=== PATIENT | female | born 1965 | race Caucasian/White ===

== ENCOUNTER 2024-12-21 08:22 | Outpatient (REF) | payer OTHER, SELFPAY ==
--- OUTSIDE RECORDS SUMMARY | 2024-12-21 08:46 | XMS_ITS | Data Portability ---
Author Organization [facility], Main Office Address [address] [place] [address] Care Team Providers Care Medical Records Field Technician Name Role Phone ANGELINE CUETO Primary Care Provider ANNEMARIE ENGLE Faculty Criminal Justice LETI AGUILAR Psychiatrist JUVENTINO CORNEJO Referring Provider Assessment No assessment recorded. Plan of Treatment Reminders Order Date Submit Date Provider Last Modified By Organization Details Last Modified Time Details Appointments None recor ded. Lab cinthya tin, serum or plasm a 2024 025 CUR[facility] (Centralized Electronic Ordering - All Locations), Patient Can Go To The Location Of Their Choice, 08:08:28 lipid panel , serum 2024 025 [facility] (Centralized Electronic Ordering - All Locations), Patient Can Go To The Location Of Their Choice, 08:08:27 CMP, serum or plasm a 2024 025 [facility] (Centralized Electronic Ordering - All Locations), Patient Can Go To The Location Of Their Choice, 08:08:25 CBC 2024 025 [facility] (Centralized Electronic Ordering - All Locations), Patient Can Go To The Location Of Their Choice, 08:08:26 lipid panel , serum 2022 023 CURT [facility], [address], [address], [place], [address], 3 01:33:19 CMP, serum or plasm a 2022 023 [facility], [address], [address], [place], [address], 3 01:41:07 nonin vasiv e color ectal cance r DNA + occul t blood scree papi, QL, stool 2022 023 [facility] [address], [address], [place], [address], 3 14:54:55 CBC w/ auto diff 2022 023 [facility], [address], [address], [place], [address], 3 01:32:38 lipid panel , serum 2021 022 [facility], [address], [address], [place], [address], 2 11:33:56 CMP, serum or plasm a 2021 022 [facility], [address], [address], [place], [address], 2 11:33:55 nonin vasiv e color ectal cance r DNA + occul t blood scree papi, QL, stool 2021 022 [facility] [address], [address], [place], [address], 3 14:18:49 CBC w/ auto diff 2021 022 [facility], [address], [address], [place], [address], 2 11:42:57 hepat itis C virus Ab, serum 2021 022 [facility], [address], [address], [place], [address], 2 11:16:19 nonin vasiv e color ectal cance r DNA + occul t blood scree papi, stool 2020 021 [email or web address] [facility] (Cologuard Orders Only), [address], [address], [place], [address], 1 11:32:01 CMP, serum or plasm a 2020 021 [facility], [address], [address], [place], [address], 1 17:29:54 lipid panel , serum 2020 021 [facility]T [facility], [address], [address], [place], [address], 1 17:29:55 CBC w/ auto diff 2020 021 [facility], [address], [address], [place], [address], 1 17:53:43 vitam in D, 25-hy droxy , total , serum 2020 021 [facility]T [facility], [address], [address], [place], [address], 1 17:44:34 lipid panel , serum 2019 020 [facility]T [facility], [address], [address], [place], [address], 0 10:57:57 CMP, serum or plasm a 2019 020 [facility], [address], [address], [place], [address], 0 10:57:55 Referral audio logis t refer ral - Decre ased heari ng 2024 025 [email or web address] [facility], [address] [place] [address] [place], [address], 5 10:01:04 sleep medic ine refer ral - Unref reshe d sleep and dayti me fatig ue. 2022 023 [facility], [address] [place], [address], 3 15:23:[address] refer ral - Routi ne mechanical fitter care 2019 020 juan Jiménez MD, [address] [facility], [address], [place], [address], 0 09:19:53 gastr oente rolog ist refer ral - Needs colon cance r nicolle turpin 2019 020 [facility] [place] Treasure Burns MD, [address] [facility] [address], [place], [address], 0 14:40:04 Procedures colon oscop y nicolle turpin (PROC ) 2019 [facility]20 [facility], [address] [facility], [place], [address], 0 14:25:52 Surgeries None recor ded. Imaging audio gram 2022 023 [email or web address] In-Office Order, Internal Use Only DO Not Attach Compendium DO Not Attach Compendium, Do Not Delete/merge, [id number] 3 17:41:14 MAMMO nicolle bilat eral - Perfo rm Diagn ostic Mammo gram and Breas t Ultra sound if neede d / Perfo rm Ultra sound Guide d Aspir ation and/o r Breas t Biops y if warra nted 2020 021 [email or web address] In-Office Order, Internal Use Only DO Not Attach Compendium DO Not Attach Compendium, Do Not Delete/merge, [id number] 1 11:05:17 MAMMO , scree papi, bilat eral - Perfo rm Diagn ostic Mammo gram and Breas t Ultra sound if neede d / Perfo rm Ultra sound Guide d Aspir ation and/o r Breas t Biops y if warra nted 2019 020 [email or web address] In-Office Order, Internal Use Only DO Not Attach Compendium DO Not Attach Compendium, Do Not Delete/merge, [id number] 0 14:40:04 Medication Orders None recor ded. Patient TargetsNo targets recorded. Patient Instructions Encounter Date Encounter Id Patient Instructions Last Modified By Organization Details Last Modified Time 09/28/2019 [id number] learning about colon cancer [email or web address] Not available 09/28/2019 14:22:48 01/09/2021 [id number] learning about colon cancer acennerazzo Not available 01/09/2021 10:40:21 colon cancer screening: care instructions [email or web address] Not available 01/09/2021 10:40:21 02/11/2022 [id number] colon cancer screening: care instructions [email or web address] Not available 02/11/2022 10:40:15 learning about mood disorders acennerazzo Not available 02/11/2022 12:44:40 05/27/2023 [id number] hearing loss: care instructions acennerazzo Not available 05/27/2023 10:32:52 colon cancer screening: care instructions acennerazzo Not available 05/27/2023 17:45:20 learning about mood disorders [email or web address] Not available 05/27/2023 17:43:26 10/03/2024 [id number] hearing loss: care instructions acennerazzo Not available 10/03/2024 09:54:49 high cholesterol: care instructions acennerazzo Not available 10/03/2024 09:54:23 learning about mood disorders [email or web address] Not available 10/03/2024 09:54:23 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 [facility] [facility] [address], [place], [address], 02/11/2023 14:18:48 01/10/20 22 01/09/2022 COLOG UARD cologuard result Cancel led - Order d not applic able Not Available [facility] (Cologuard Orders Only) [address], [place], [address], 01/09/2022 07:29:36 10/26/19 20 10/26/2019 CMP, serum or plasm a glucose 86 mg/dL (70-99 ) Not Available [facility] (Centralized Electronic Ordering - All Locations) Patient Can Go To The Location Of Their Choice, [id number] 10/26/2019 10:57:55 10/26/19 20 10/26/2019 CMP, serum or plasm a BUN 11 mg/dL (6-20) Not Available [facility] (Centralized Electronic Ordering - All Locations) Patient Can Go To The Location Of Their Choice, 10/26/2019 10:57:55 10/26/1910/26/2019 CMP, serum or plasm a creatinine 1.0 mg/dL (0.5-1 .0) Not Available [facility] (Centralized Electronic Ordering - All Locations) Patient Can Go To The Location Of Their Choice, 10/26/2019 10:57:55 10/26/1910/26/2019 CMP, serum or plasm a sodium 141 mmol/ L (133-1 45) Not Available [facility] (Centralized Electronic Ordering - All Locations) Patient Can Go To The Location Of Their Choice, 10/26/2019 10:57:55 10/26/1910/26/2019 CMP, serum or plasm a potassium 4.4 mmol/ L (3.6-5 .2) Not Available [facility] (Centralized Electronic Ordering - All Locations) Patient Can Go To The Location Of Their Choice, 10/26/2019 10:57:55 10/26/1910/26/2019 CMP, serum or plasm a chloride 103 mmol/ L (98-10 7) Not Available [facility] (Centralized Electronic Ordering - All Locations) Patient Can Go To The Location Of Their Choice, 10/26/2019 10:57:55 10/26/1910/26/2019 CMP, serum or plasm a bicarbonate 30 mmol/ L (22-29 ) high Not Available [facility] (Centralized Electronic Ordering - All Locations) Patient Can Go To The Location Of Their Choice, 10/26/2019 10:57:55 10/26/1910/26/2019 CMP, serum or plasm a anion gap 8 (4-17) Not Available [facility] (Centralized Electronic Ordering - All Locations) Patient Can Go To The Location Of Their Choice, 10/26/2019 10:57:55 10/26/1910/26/2019 CMP, serum or plasm a albumin 4.3 gm/dL (3.4-4 .8) Not Available [facility] (Centralized Electronic Ordering - All Locations) Patient Can Go To The Location Of Their Choice, 10/26/2019 10:57:55 10/26/1910/26/2019 CMP, serum or plasm a calcium 9.2 mg/dL (8.6-1 0.5) Not Available [facility] (Centralized Electronic Ordering - All Locations) Patient Can Go To The Location Of Their Choice, 10/26/2019 10:57:55 10/26/1910/26/2019 CMP, serum or plasm a bilirubin,to robles 0.3 mg/dL (0-1.2 ) Not Available [facility] (Centralized Electronic Ordering - All Locations) Patient Can Go To The Location Of Their Choice, 10/26/2019 10:57:55 10/26/1910/26/2019 CMP, serum or plasm a total protein 6.5 gm/dL (6.2-8 .2) Not Available [facility] (Centralized Electronic Ordering - All Locations) Patient Can Go To The Location Of Their Choice, 10/26/2019 10:57:55 10/26/1910/26/2019 CMP, serum or plasm a Ag ratio 2.0 Not Available [facility] (Centralized Electronic Ordering - All Locations) Patient Can Go To The Location Of Their Choice, 10/26/2019 10:57:55 10/26/1910/26/2019 CMP, serum or plasm a AST 24 U/L (0-32) Not Available [facility] (Centralized Electronic Ordering - All Locations) Patient Can Go To The Location Of Their Choice, 10/26/2019 10:57:55 10/26/1910/26/2019 CMP, serum or plasm a alk phos 69 U/L (35-10 4) Not Available [facility] (Centralized Electronic Ordering - All Locations) Patient Can Go To The Location Of Their Choice, 10/26/2019 10:57:55 10/26/1910/26/2019 CMP, serum or plasm a ALT 17 U/L (0-33) Not Available [facility] (Centralized Electronic Ordering - All Locations) Patient Can Go To The Location Of Their Choice, 10/26/2019 10:57:55 10/26/1910/26/2019 CMP, serum or plasm a est GFR non 65 mL/mi n/1.7 3_M2 Creat inine based estim ated glome rular filtr ation rate (eGFR ) is calcu lated using the Chron ic Kidne y Disea se Epide miolo gy Colla borat ion (CKD- EPI). The CKD-E PI creat inine equat ion has not been valid ated in child emilee (<18 years ), pregn ant women or in some racia l or ethni c subgr oups other than Cauca sians and Afric an Ameri cans. Not Available [facility] (Centralized Electronic Ordering - All Locations) Patient Can Go To The Location Of Their Choice, 10/26/2019 10:57:55 10/26/1910/26/2019 CMP, serum or plasm a est GFR 75 mL/mi n/1.7 3_M2 Creat inine based estim ated glome rular filtr ation rate (eGFR ) is calcu lated using the Chron ic Kidne y Disea se Epide miolo gy Colla borat ion (CKD- EPI). The CKD-E PI creat inine equat ion has not been valid ated in child emilee (<18 years ), pregn ant women or in some racia l or ethni c subgr oups other than Cauca sians and Afric an Ameri cans. Not Available [facility] (Centralized Electronic Ordering - All Locations) Patient Can Go To The Location Of Their Choice, 10/26/2019 10:57:55 10/26/1910/26/2019 lipid panel , serum cholesterol, total 198 mg/dL (<200) Not Available [facility] (Centralized Electronic Ordering - All Locations) Patient Can Go To The Location Of Their Choice, 10/26/2019 10:57:57 10/26/1910/26/2019 lipid panel , serum triglyceride 67 mg/dL (<150) Not Available [facility] ([facility] Order[facility] - All Locations) Patient Can Go To The Location Of Their Choice, 10/26/2019 10:57:57 10/26/1910/26/2019 lipid panel , serum HDL chol 80 mg/dL (>39) Not Available [facility] (Centralized Electronic Ordering - All Locations) Patient Can Go To The Location Of Their Choice, 10/26/2019 10:57:57 10/26/1910/26/2019 lipid panel , serum LDL cholesterol, calculated 105 mg/dL (0-130 ) Not Available [facility] (Centralized Electronic Ordering - All Locations) Patient Can Go To The Location Of Their Choice, 10/26/2019 10:57:57 10/26/1910/26/2019 lipid panel , serum non HDL cholesterol (calc) 118 mg/dL (<160) Not Available [facility] (Centralized Electronic Ordering - All Locations) Patient Can Go To The Location Of Their Choice, 10/26/2019 10:57:57 01/09/2001/09/2020 pap test, thinp rep, cervi vielka thinprep Pap negati ve hpv negat marco antonio Not Available Annemarie Engle MD [address], [address], 03/17/2021 10:21:34 01/10/2001/09/2021 CMP, serum or plasm a glucose 79 mg/dL (70-99 ) Not Available [facility] (Centralized Electronic Ordering - All Locations) Patient Can Go To The Location Of Their Choice, 01/09/2021 17:29:54 01/10/2001/09/2021 CMP, serum or plasm a BUN 11 mg/dL (6-20) Not Available [facility] (Centralized Electronic Ordering - All Locations) Patient Can Go To The Location Of Their Choice, 01/09/2021 17:29:54 01/10/2001/09/2021 CMP, serum or plasm a creatinine 1.0 mg/dL (0.5-1 .0) Not Available [facility] (Centralized Electronic Ordering - All Locations) Patient Can Go To The Location Of Their Choice, 01/09/2021 17:29:54 01/10/2001/09/2021 CMP, serum or plasm a sodium 139 mmol/ L (133-1 45) Not Available [facility] (Centralized Electronic Ordering - All Locations) Patient Can Go To The Location Of Their Choice, 01/09/2021 17:29:54 01/10/2001/09/2021 CMP, serum or plasm a potassium 4.2 mmol/ L (3.6-5 .2) Not Available [facility] (Centralized Electronic Ordering - All Locations) Patient Can Go To The Location Of Their Choice, 01/09/2021 17:29:54 01/10/2001/09/2021 CMP, serum or plasm a chloride 104 mmol/ L (98-10 7) Not Available [facility] (Centralized Electronic Ordering - All Locations) Patient Can Go To The Location Of Their Choice, 01/09/2021 17:29:54 01/10/2001/09/2021 CMP, serum or plasm a bicarbonate 25 mmol/ L (22-29 ) Not Available [facility] (Centralized Electronic Ordering - All Locations) Patient Can Go To The Location Of Their Choice, 01/09/2021 17:29:54 01/10/2001/09/2021 CMP, serum or plasm a anion gap 10 (4-17) Not Available [facility] (Centralized Electronic Ordering - All Locations) Patient Can Go To The Location Of Their Choice, 01/09/2021 17:29:54 01/10/2001/09/2021 CMP, serum or plasm a albumin 4.0 gm/dL (3.4-4 .8) Not Available [facility] (Centralized Electronic Ordering - All Locations) Patient Can Go To The Location Of Their Choice, 01/09/2021 17:29:54 01/10/2001/09/2021 CMP, serum or plasm a calcium 8.9 mg/dL (8.6-1 0.5) Not Available [facility] (Centralized Electronic Ordering - All Locations) Patient Can Go To The Location Of Their Choice, 01/09/2021 17:29:54 01/10/2001/09/2021 CMP, serum or plasm a bilirubin,to robles 0.4 mg/dL (0-1.2 ) Not Available [facility] (Centralized Electronic Ordering - All Locations) Patient Can Go To The Location Of Their Choice, 01/09/2021 17:29:54 01/10/2001/09/2021 CMP, serum or plasm a total protein 6.2 gm/dL (6.2-8 .2) Not Available [facility] (Centralized Electronic Ordering - All Locations) Patient Can Go To The Location Of Their Choice, 01/09/2021 17:29:54 01/10/2001/09/2021 CMP, serum or plasm a Ag ratio 1.8 Not Available [facility] (Centralized Electronic Ordering - All Locations) Patient Can Go To The Location Of Their Choice, 01/09/2021 17:29:54 01/10/2001/09/2021 CMP, serum or plasm a AST 17 U/L (0-32) Not Available [facility] (Centralized Electronic Ordering - All Locations) Patient Can Go To The Location Of Their Choice, 01/09/2021 17:29:54 01/10/2001/09/2021 CMP, serum or plasm a alk phos 72 U/L (35-10 4) Not Available [facility] (Centralized Electronic Ordering - All Locations) Patient Can Go To The Location Of Their Choice, 01/09/2021 17:29:54 01/10/2001/09/2021 CMP, serum or plasm a ALT 11 U/L (0-33) Not Available [facility] (Centralized Electronic Ordering - All Locations) Patient Can Go To The Location Of Their Choice, 01/09/2021 17:29:54 01/10/2001/09/2021 CMP, serum or plasm a est GFR non 68 mL/mi n/1.7 3_M2 Creat inine based estim ated glome rular filtr ation rate (eGFR ) is calcu lated using the Chron ic Kidne y Disea se Epide miolo gy Colla borat ion (CKD- EPI). The CKD-E PI creat inine equat ion has not been valid ated in child emilee (<18 years ), pregn ant women or in some racia l or ethni c subgr oups other than Cauca sians and Afric an Ameri cans. Not Available [facility] (Centralized Electronic Ordering - All Locations) Patient Can Go To The Location Of Their Choice, 01/09/2021 17:29:54 01/10/2001/09/2021 CMP, serum or plasm a est GFR 79 mL/mi n/1.7 3_M2 Creat inine based estim ated glome rular filtr ation rate (eGFR ) is calcu lated using the Chron ic Kidne y Disea se Epide miolo gy Colla borat ion (CKD- EPI). The CKD-E PI creat inine equat ion has not been valid ated in child emilee (<18 years ), pregn ant women or in some racia l or ethni c subgr oups other than Chona karla and Afric an Mary Betheri cans. Not Available [facility] (Centralized Electronic Ordering - All Locations) Patient Can Go To The Location Of Their Choice, 01/09/2021 17:29:54 01/10/2001/09/2021 lipid panel , serum cholesterol, total 198 mg/dL (<200) Not Available [facility] (Centralized [facility] Ordering - All Locations) Patient Can Go To The Location Of Their Choice, 01/09/2021 17:29:55 01/10/2001/09/2021 lipid panel , serum triglyceride 45 mg/dL (<150) Not Available [facility] (Central[facility] Ordering - All Locations) Patient Can Go To The Location Of Their Choice, 01/09/2021 17:29:55 01/10/2001/09/2021 lipid panel , serum HDL chol 72 mg/dL (>39) Not Available [facility] (Centralized Electronic Ordering - All Locations) Patient Can Go To The Location Of Their Choice, 01/09/2021 17:29:55 01/10/2001/09/2021 lipid panel , serum LDL cholesterol, calculated 117 mg/dL (0-130 ) Not Available [facility] (Centralized Electronic Ordering - All Locations) Patient Can Go To The Location Of Their Choice, 01/09/2021 17:29:55 01/10/2001/09/2021 lipid panel , serum non HDL cholesterol (calc) 126 mg/dL (<160) Not Available [facility] (Centralized Electronic Ordering - All Locations) Patient Can Go To The Location Of Their Choice, 01/09/2021 17:29:55 01/10/2001/09/2021 vitam in D, 25-hy droxy , total , serum 25OH vitamin D 42.2 NG/mL (20-50 ) Not Available [facility] (Centralized Electronic Ordering - All Locations) Patient Can Go To The Location Of Their Choice, 01/09/2021 17:44:34 01/10/2001/09/2021 CBC w/ auto diff WBC 5.1 K/mm3 (4.0-1 1.0) Not Available [facility] (Centralized Electronic Ordering - All Locations) Patient Can Go To The Location Of Their Choice, 01/09/2021 17:53:43 01/10/2001/09/2021 CBC w/ auto diff RBC 4.05 M/mm3 (4.20- 5.40) low Not Available [facility] (Centralized Electronic Ordering - All Locations) Patient Can Go To The Location Of Their Choice, 01/09/2021 17:53:43 01/10/2001/09/2021 CBC w/ auto diff HGB 12.6 gm/dL (11.7- 15.5) Not Available [facility] (Centralized Electronic Ordering - All Locations) Patient Can Go To The Location Of Their Choice, 01/09/2021 17:53:43 01/10/2001/09/2021 CBC w/ auto diff HCT 38.5 % (35.7- 45.8) Not Available [facility] (Centralized Electronic Ordering - All Locations) Patient Can Go To The Location Of Their Choice, 01/09/2021 17:53:43 01/10/2001/09/2021 CBC w/ auto diff MCV 95.1 fL (80.0- 100.0) Not Available [facility] (Centralized Electronic Ordering - All Locations) Patient Can Go To The Location Of Their Choice, 01/09/2021 17:53:43 01/10/2001/09/2021 CBC w/ auto diff MCH 31.1 pg (27.0- 34.0) Not Available [facility] (Centralized Electronic Ordering - All Locations) Patient Can Go To The Location Of Their Choice, 01/09/2021 17:53:43 01/10/2001/09/2021 CBC w/ auto diff MCHC 32.7 g/dL (33.0- 37.0) low Not Available [facility] (Centralized Electronic Ordering - All Locations) Patient Can Go To The Location Of Their Choice, 01/09/2021 17:53:43 01/10/2001/09/2021 CBC w/ auto diff plt 184 K/mm3 (150-4 60) Not Available [facility] (Centralized Electronic Ordering - All Locations) Patient Can Go To The Location Of Their Choice, 01/09/2021 17:53:43 01/10/2001/09/2021 CBC w/ auto diff RDW-SD 44.0 fL (<47.0 ) Not Available [facility] (Centralized Electronic Ordering - All Locations) Patient Can Go To The Location Of Their Choice, 01/09/2021 17:53:43 01/10/2001/09/2021 CBC w/ auto diff MPV 11.0 fL (9.4-1 2.4) Not Available [facility] (Centralized Electronic Ordering - All Locations) Patient Can Go To The Location Of Their Choice, 01/09/2021 17:53:43 01/10/2001/09/2021 CBC w/ auto diff automated NRBC 0.0 #/100 _WBC' s Not Available [facility] (Centralized Electronic Ordering - All Locations) Patient Can Go To The Location Of Their Choice, 01/09/2021 17:53:43 01/10/2001/09/2021 CBC w/ auto diff abs. NRBC 0.0 K/mm3 Not Available [facility] (Centralized Electronic Ordering - All Locations) Patient Can Go To The Location Of Their Choice, 01/09/2021 17:53:43 02/26/2002/25/2022 COMPR EHENS MARCO ANTONIO METAB OLIC PANL glucose 98 mg/dL (70-99 ) Not Available [facility] (Centralized Electronic Ordering - All Locations) Patient Can Go To The Location Of Their Choice, 02/25/2022 11:33:55 02/26/2002/25/2022 COMPR EHENS MARCO ANTONIO METAB OLIC PANL BUN 9 mg/dL (6-20) Not Available [facility] (Centralized Electronic Ordering - All Locations) Patient Can Go To The Location Of Their Choice, 02/25/2022 11:33:55 02/26/2002/25/2022 COMPR EHENS MARCO ANTONIO METAB OLIC PANL creatinine 1.0 mg/dL (0.5-1 .0) Not Available [facility] (Centralized Electronic Ordering - All Locations) Patient Can Go To The Location Of Their Choice, 02/25/2022 11:33:55 02/26/2002/25/2022 COMPR EHENS MARCO ANTONIO METAB OLIC PANL sodium 137 mmol/ L (133-1 45) Not Available [facility] (Centralized Electronic Ordering - All Locations) Patient Can Go To The Location Of Their Choice, 02/25/2022 11:33:55 02/26/2002/25/2022 COMPR EHENS MARCO ANTONIO METAB OLIC PANL potassium 4.4 mmol/ L (3.6-5 .2) Not Available [facility] (Centralized Electronic Ordering - All Locations) Patient Can Go To The Location Of Their Choice, 02/25/2022 11:33:55 02/26/2002/25/2022 COMPR EHENS MARCO ANTONIO METAB OLIC PANL chloride 103 mmol/ L (98-10 7) Not Available [facility] (Centralized Electronic Ordering - All Locations) Patient Can Go To The Location Of Their Choice, 02/25/2022 11:33:55 02/26/2002/25/2022 COMPR EHENS MARCO ANTONIO METAB OLIC PANL bicarbonate 24 mmol/ L (22-29 ) Not Available [facility] (Centralized Electronic Ordering - All Locations) Patient Can Go To The Location Of Their Choice, 02/25/2022 11:33:55 02/26/2002/25/2022 COMPR EHENS MARCO ANTONIO METAB OLIC PANL anion gap 10 (4-17) Not Available [facility] (Centralized Electronic Ordering - All Locations) Patient Can Go To The Location Of Their Choice, 02/25/2022 11:33:55 02/26/2002/25/2022 COMPR EHENS MARCO ANTONIO METAB OLIC PANL albumin 4.2 gm/dL (3.4-4 .8) Not Available [facility] (Centralized Electronic Ordering - All Locations) Patient Can Go To The Location Of Their Choice, 02/25/2022 11:33:55 02/26/2002/25/2022 COMPR EHENS MARCO ANTONIO METAB OLIC PANL calcium 8.7 mg/dL (8.6-1 0.5) Not Available [facility] (Centralized Electronic Ordering - All Locations) Patient Can Go To The Location Of Their Choice, 02/25/2022 11:33:55 02/26/2002/25/2022 COMPR EHENS MARCO ANTONIO METAB OLIC PANL bilirubin,to robles 0.2 mg/dL (0-1.2 ) Not Available [facility] (Centralized Electronic Ordering - All Locations) Patient Can Go To The Location Of Their Choice, 02/25/2022 11:33:55 02/26/20 22 02/25/2022 COMPR EHENS MARCO ANTONIO METAB OLIC PANL total protein 6.2 gm/dL (6.2-8 .2) Not Available [facility] (Centralized Electronic Ordering - All Locations) Patient Can Go To The Location Of Their Choice, 02/25/2022 11:33:55 02/26/2002/25/2022 COMPR EHENS MARCO ANTONIO METAB OLIC PANL Ag ratio 2.1 Not Available [facility] (Centralized Electronic Ordering - All Locations) Patient Can Go To The Location Of Their Choice, 02/25/2022 11:33:55 02/26/2002/25/2022 COMPR EHENS MARCO ANTONIO METAB OLIC PANL AST 20 U/L (0-32) Not Available [facility] (Centralized Electronic Ordering - All Locations) Patient Can Go To The Location Of Their Choice, 02/25/2022 11:33:55 02/26/2002/25/2022 COMPR EHENS MARCO ANTONIO METAB OLIC PANL alk phos 68 U/L (35-10 4) Not Available [facility] (Centralized Electronic Ordering - All Locations) Patient Can Go To The Location Of Their Choice, 02/25/2022 11:33:55 02/26/2002/25/2022 COMPR EHENS MARCO ANTONIO METAB OLIC PANL ALT 13 U/L (0-33) Not Available [facility] (Centralized Electronic Ordering - All Locations) Patient Can Go To The Location Of Their Choice, 02/25/2022 11:33:55 02/26/2002/25/2022 COMPR EHENS MARCO ANTONIO METAB OLIC PANL estimated GFR creatinine 67 mL/mi n/1.7 3_M2 Creat inine based estim ated glome rular filtr ation (eGFR ) in adult s is calcu lated using the Natio nal Kidne y Found ation recom tr d 2020 CKD-E PI equat ion. Estim ates GFR from serum creat inine , age and sex. Not Available [facility] (Centralized Electronic Ordering - All Locations) Patient Can Go To The Location Of Their Choice, 02/25/2022 11:33:55 02/26/2002/25/2022 LIPID PANEL cholesterol, total 193 mg/dL (<200) Not Available [facility] ([facility] Order[facility] - All Locations) Patient Can Go To The Location Of Their Choice, 02/25/2022 11:33:56 02/26/2002/25/2022 LIPID PANEL triglyceride 84 mg/dL (<150) Not Available [facility] ([facility] Ordering - All Locations) Patient Can Go To The Location Of Their Choice, 02/25/2022 11:33:56 02/26/2002/25/2022 LIPID PANEL HDL chol 68 mg/dL (>39) Not Available [facility] (Centralized Electronic Ordering - All Locations) Patient Can Go To The Location Of Their Choice, 02/25/2022 11:33:56 02/26/2002/25/2022 LIPID PANEL LDL cholesterol, calculated 108 mg/dL (0-130 ) Not Available [facility] (Centralized Electronic Ordering - All Locations) Patient Can Go To The Location Of Their Choice, 02/25/2022 11:33:56 02/26/2002/25/2022 LIPID PANEL non HDL cholesterol (calc) 125 mg/dL (<160) Not Available [facility] ([facility] Ordering - All Locations) Patient Can Go To The Location Of Their Choice, 02/25/2022 11:33:56 02/26/2002/25/2022 COMPL ETE BLOOD COUNT WBC 4.1 K/mm3 (4.0-1 1.0) Not Available [facility] (Centralized Electronic Ordering - All Locations) Patient Can Go To The Location Of Their Choice, 02/25/2022 11:42:57 02/26/2002/25/2022 COMPL ETE BLOOD COUNT RBC 3.87 M/mm3 (4.20- 5.40) low Not Available [facility] (Centralized Electronic Ordering - All Locations) Patient Can Go To The Location Of Their Choice, 02/25/2022 11:42:57 02/26/2002/25/2022 COMPL ETE BLOOD COUNT HGB 11.8 gm/dL (11.7- 15.5) Not Available [facility] (Centralized Electronic Ordering - All Locations) Patient Can Go To The Location Of Their Choice, 02/25/2022 11:42:57 02/26/2002/25/2022 COMPL ETE BLOOD COUNT HCT 36.4 % (35.7- 45.8) Not Available [facility] (Centralized Electronic Ordering - All Locations) Patient Can Go To The Location Of Their Choice, 02/25/2022 11:42:57 02/26/2002/25/2022 COMPL ETE BLOOD COUNT MCV 94.1 fL (80.0- 100.0) Not Available [facility] (Centralized Electronic Ordering - All Locations) Patient Can Go To The Location Of Their Choice, 02/25/2022 11:42:57 02/26/2002/25/2022 COMPL ETE BLOOD COUNT MCH 30.5 pg (27.0- 34.0) Not Available [facility] (Centralized Electronic Ordering - All Locations) Patient Can Go To The Location Of Their Choice, 02/25/2022 11:42:57 02/26/2002/25/2022 COMPL ETE BLOOD COUNT MCHC 32.4 g/dL (33.0- 37.0) low Not Available [facility] (Centralized Electronic Ordering - All Locations) Patient Can Go To The Location Of Their Choice, 02/25/2022 11:42:57 02/26/2002/25/2022 COMPL ETE BLOOD COUNT plt 154 K/mm3 (150-4 60) Not Available [facility] (Centralized Electronic Ordering - All Locations) Patient Can Go To The Location Of Their Choice, 02/25/2022 11:42:57 02/26/2002/25/2022 COMPL ETE BLOOD COUNT RDW-SD 43.4 fL (<47.0 ) Not Available [facility] (Centralized Electronic Ordering - All Locations) Patient Can Go To The Location Of Their Choice, 02/25/2022 11:42:57 06/29/20 22 02/25/2022 COMPL ETE BLOOD COUNT MPV 10.9 fL (9.4-1 2.4) Not Available [facility] (Centralized Electronic Ordering - All Locations) Patient Can Go To The Location Of Their Choice, 02/25/2022 11:42:57 02/26/2002/25/2022 COMPL ETE BLOOD COUNT automated NRBC 0.0 #/100 _WBC' s Not Available [facility] (Centralized Electronic Ordering - All Locations) Patient Can Go To The Location Of Their Choice, 02/25/2022 11:42:57 02/26/2002/25/2022 COMPL ETE BLOOD COUNT abs. NRBC 0.0 K/mm3 Not Available [facility] (Centralized Electronic Ordering - All Locations) Patient Can Go To The Location Of Their Choice, 02/25/2022 11:42:57 02/26/2002/26/2022 ANTI- HEPAT ITIS C anti-hepatit is C (neg) normal NEGAT MARCO ANTONIO Refer ence range : Negat marco antonio This test was perfo rmed on the Abbot t Archi tect immun oassa y syste m. Not Available [facility] (Centralized Electronic Ordering - All Locations) Patient Can Go To The Location Of Their Choice, 02/26/2022 11:16:18 05/27/2005/27/2023 COMPL ETE CBC WITH DIFF WBC 5.0 K/mm3 (4.0-1 1.0) Not Available [facility] (Centralized Electronic Ordering - All Locations) Patient Can Go To The Location Of Their Choice, 05/27/2023 15:53:55 05/27/2005/27/2023 COMPL ETE CBC WITH DIFF RBC 4.46 M/mm3 (4.20- 5.40) Not Available [facility] (Centralized Electronic Ordering - All Locations) Patient Can Go To The Location Of Their Choice, 05/27/2023 15:53:55 05/27/2005/27/2023 COMPL ETE CBC WITH DIFF HGB 14.0 gm/dL (11.7- 15.5) Not Available [facility] (Centralized Electronic Ordering - All Locations) Patient Can Go To The Location Of Their Choice, 05/27/2023 15:53:55 05/27/2005/27/2023 COMPL ETE CBC WITH DIFF HCT 43.1 % (35.7- 45.8) Not Available [facility] (Centralized Electronic Ordering - All Locations) Patient Can Go To The Location Of Their Choice, 05/27/2023 15:53:55 05/27/2005/27/2023 COMPL ETE CBC WITH DIFF MCV 96.6 fL (80.0- 100.0) Not Available [facility] (Centralized Electronic Ordering - All Locations) Patient Can Go To The Location Of Their Choice, 05/27/2023 15:53:55 05/27/2005/27/2023 COMPL ETE CBC WITH DIFF MCH 31.4 pg (27.0- 34.0) Not Available [facility] (Centralized Electronic Ordering - All Locations) Patient Can Go To The Location Of Their Choice, 05/27/2023 15:53:55 05/27/2005/27/2023 COMPL ETE CBC WITH DIFF MCHC 32.5 g/dL (33.0- 37.0) low Not Available [facility] (Centralized Electronic Ordering - All Locations) Patient Can Go To The Location Of Their Choice, 05/27/2023 15:53:55 05/27/2005/27/2023 COMPL ETE CBC WITH DIFF plt 208 K/mm3 (150-4 60) Not Available [facility] ([facility]ized Electronic Ordering - All Locations) Patient Can Go To The Location Of Their Choice, 05/27/2023 15:53:55 05/27/2005/27/2023 COMPL ETE CBC WITH DIFF RDW-SD 42.5 fL (<47.0 ) Not Available [facility] (Centralized Electronic Ordering - All Locations) Patient Can Go To The Location Of Their Choice, 05/27/2023 15:53:55 05/27/2005/27/2023 COMPL ETE CBC WITH DIFF MPV 10.4 fL (9.4-1 2.4) Not Available [facility] ([facility]ized Electronic Ordering - All Locations) Patient Can Go To The Location Of Their Choice, 05/27/2023 15:53:55 05/27/2005/27/2023 COMPL ETE CBC WITH DIFF automated NRBC 0.0 #/100 _WBC' s Not Available [facility] (Centralized Electronic Ordering - All Locations) Patient Can Go To The Location Of Their Choice, 05/27/2023 15:53:55 05/27/2005/27/2023 COMPL ETE CBC WITH DIFF abs. NRBC 0.0 K/mm3 Not Available [facility] (Centralized Electronic Ordering - All Locations) Patient Can Go To The Location Of Their Choice, 05/27/2023 15:53:55 05/27/2005/27/2023 COMPL ETE CBC WITH DIFF neut # 3.0 K/mm3 (1.3-7 .0) Not Available [facility] (Centralized Electronic Ordering - All Locations) Patient Can Go To The Location Of Their Choice, 05/27/2023 15:53:55 05/27/2005/27/2023 COMPL ETE CBC WITH DIFF lymph # 1.4 K/mm3 (0.8-3 .1) Not Available [facility] (Centralized Electronic Ordering - All Locations) Patient Can Go To The Location Of Their Choice, 05/27/2023 15:53:55 05/27/2005/27/2023 COMPL ETE CBC WITH DIFF mono# 0.3 K/mm3 (0.4-0 .9) low Not Available [facility] ([facility]ized Electronic Ordering - All Locations) Patient Can Go To The Location Of Their Choice, 05/27/2023 15:53:55 05/27/2005/27/2023 COMPL ETE CBC WITH DIFF eo # 0.2 K/mm3 (0.0-0 .4) Not Available [facility] ([facility]ized Electronic Ordering - All Locations) Patient Can Go To The Location Of Their Choice, 05/27/2023 15:53:55 05/27/2005/27/2023 COMPL ETE CBC WITH DIFF baso # 0.1 K/mm3 (0.0-0 .1) Not Available [facility] ([facility]ized Electronic Ordering - All Locations) Patient Can Go To The Location Of Their Choice, 05/27/2023 15:53:55 05/27/2005/27/2023 COMPL ETE CBC WITH DIFF abs. imm gran 0.0 K/mm3 Not Available [facility] ([facility] Ordering - All Locations) Patient Can Go To The Location Of Their Choice, 05/27/2023 15:53:55 05/27/2005/27/2023 COMPL ETE CBC WITH DIFF neut 61.0 % (44-76 ) Not Available [facility] (Centralized Electronic Ordering - All Locations) Patient Can Go To The Location Of Their Choice, 05/27/2023 15:53:55 05/27/2005/27/2023 COMPL ETE CBC WITH DIFF lymph 27.4 % (15-43 ) Not Available [facility] (Centralized Electronic Ordering - All Locations) Patient Can Go To The Location Of Their Choice, 05/27/2023 15:53:55 05/27/2005/27/2023 COMPL ETE CBC WITH DIFF monocyte 6.6 % (4.5-1 0.5) Not Available [facility] ([facility]ized Electronic Ordering - All Locations) Patient Can Go To The Location Of Their Choice, 05/27/2023 15:53:55 05/27/2005/27/2023 COMPL ETE CBC WITH DIFF eo 3.6 % (0-6) Not Available [facility] (Centralized Electronic Ordering - All Locations) Patient Can Go To The Location Of Their Choice, 05/27/2023 15:53:55 05/27/2005/27/2023 COMPL ETE CBC WITH DIFF baso 1.2 % (0-2) Not Available [facility] ([facility]ized Electronic Ordering - All Locations) Patient Can Go To The Location Of Their Choice, 05/27/2023 15:53:55 05/27/2005/27/2023 COMPL ETE CBC WITH DIFF imm gran 0.2 % Not Available [facility] ([facility]ized Electronic Ordering - All Locations) Patient Can Go To The Location Of Their Choice, 05/27/2023 15:53:55 05/27/2005/27/2023 COMPR EHENS MARCO ANTONIO METAB OLIC PANL glucose 87 mg/dL (70-99 ) Not Available [facility] (Centralized Electronic Ordering - All Locations) Patient Can Go To The Location Of Their Choice, 05/27/2023 16:29:07 05/27/2005/27/2023 COMPR EHENS MARCO ANTONIO METAB OLIC PANL BUN 13 mg/dL (6-20) Not Available [facility] (Centralized Electronic Ordering - All Locations) Patient Can Go To The Location Of Their Choice, 05/27/2023 16:29:07 05/27/20 23 05/27/2023 COMPR EHENS MARCO ANTONIO METAB OLIC PANL creatinine 1.1 mg/dL (0.5-1 .0) high Not Available [facility] (Centralized Electronic Ordering - All Locations) Patient Can Go To The Location Of Their Choice, 05/27/2023 16:29:07 05/27/20 23 05/27/2023 COMPR EHENS MARCO ANTONIO METAB OLIC PANL sodium 138 mmol/ L (133-1 45) Not Available [facility] (Centralized Electronic Ordering - All Locations) Patient Can Go To The Location Of Their Choice, 05/27/2023 16:29:05/27/20 23 05/27/2023 COMPR EHENS MARCO ANTONIO METAB OLIC PANL potassium 4.4 mmol/ L (3.6-5 .2) Not Available [facility] (Centralized Electronic Ordering - All Locations) Patient Can Go To The Location Of Their Choice, 05/27/2023 16:29:07 05/27/20 23 05/27/2023 COMPR EHENS MARCO ANTONIO METAB OLIC PANL chloride 99 mmol/ L (98-10 7) Not Available [facility] ([facility]ized Electronic Ordering - All Locations) Patient Can Go To The Location Of Their Choice, 05/27/2023 16:29:07 05/27/20 23 05/27/2023 COMPR EHENS MARCO ANTONIO METAB OLIC PANL bicarbonate 29 mmol/ L (22-29 ) Not Available [facility] (Centralized Electronic Ordering - All Locations) Patient Can Go To The Location Of Their Choice, 05/27/2023 16:29:07 05/27/20 23 05/27/2023 COMPR EHENS MARCO ANTONIO METAB OLIC PANL anion gap 10 (4-17) Not Available [facility] (Centralized Electronic Ordering - All Locations) Patient Can Go To The Location Of Their Choice, 05/27/2023 16:29:07 05/27/20 23 05/27/2023 COMPR EHENS MARCO ANTONIO METAB OLIC PANL albumin 4.6 gm/dL (3.4-4 .8) Not Available [facility] (Centralized Electronic Ordering - All Locations) Patient Can Go To The Location Of Their Choice, 05/27/2023 16:29:07 05/27/2005/27/2023 COMPR EHENS MARCO ANTONIO METAB OLIC PANL calcium 9.5 mg/dL (8.6-1 0.5) Not Available [facility] (Centralized Electronic Ordering - All Locations) Patient Can Go To The Location Of Their Choice, 05/27/2023 16:29:07 05/27/20 23 05/27/2023 COMPR EHENS MARCO ANTONIO METAB OLIC PANL bilirubin,to robles 0.4 mg/dL (0-1.2 ) Not Available [facility] (Centralized Electronic Ordering - All Locations) Patient Can Go To The Location Of Their Choice, 05/27/2023 16:29:05/27/2005/27/2023 COMPR EHENS MARCO ANTONIO METAB OLIC PANL total protein 6.6 gm/dL (6.2-8 .2) Not Available [facility] (Centralized Electronic Ordering - All Locations) Patient Can Go To The Location Of Their Choice, 05/27/2023 16:29:05/27/2005/27/2023 COMPR EHENS MARCO ANTONIO METAB OLIC PANL Ag ratio 2.3 Not Available [facility] (Centralized Electronic Ordering - All Locations) Patient Can Go To The Location Of Their Choice, 05/27/2023 16:29:05/27/2005/27/2023 COMPR EHENS MARCO ANTONIO METAB OLIC PANL AST 19 U/L (0-32) Not Available [facility] (Centralized Electronic Ordering - All Locations) Patient Can Go To The Location Of Their Choice, 05/27/2023 16:29:05/27/20 23 05/27/2023 COMPR EHENS MARCO ANTONIO METAB OLIC PANL alk phos 77 U/L (35-10 4) Not Available [facility] (Centralized Electronic Ordering - All Locations) Patient Can Go To The Location Of Their Choice, 05/27/2023 16:29:07 05/27/20 23 05/27/2023 COMPR EHENS MARCO ANTONIO METAB OLIC PANL ALT 14 U/L (0-33) Not Available [facility] ([facility]ized Electronic Ordering - All Locations) Patient Can Go To The Location Of Their Choice, 05/27/2023 16:29:07 05/27/2005/27/2023 COMPR EHENS MARCO ANTONIO METAB OLIC PANL estimated GFR creatinine 61 mL/mi n/1.7 3_M2 Creat inine based estim ated glome rular filtr ation (eGFR ) in adult s is calcu lated using the Natio nal Kidne y Found ation recom tr d 2020 CKD-E PI equat ion. Estim ates GFR from serum creat inine , age and sex. Not Available [facility] (Centralized Electronic Ordering - All Locations) Patient Can Go To The Location Of Their Choice, 05/27/2023 16:29:07 05/27/2005/27/2023 LIPID PANEL cholesterol, total 243 mg/dL (<200) high Not Available [facility] ([facility] Ordering - All Locations) Patient Can Go To The Location Of Their Choice, 05/27/2023 16:29:08 05/27/2005/27/2023 LIPID PANEL triglyceride 49 mg/dL (<150) Not Available [facility] ([facility] Ordering - All Locations) Patient Can Go To The Location Of Their Choice, 05/27/2023 16:29:08 05/27/20 23 05/27/2023 LIPID PANEL HDL chol 81 mg/dL (>39) Not Available [facility] ([facility]ized Electronic Ordering - All Locations) Patient Can Go To The Location Of Their Choice, 05/27/2023 16:29:08 05/27/2005/27/2023 LIPID PANEL LDL cholesterol, calculated 152 mg/dL (0-130 ) high Not Available [facility] ([facility]ized Electronic Ordering - All Locations) Patient Can Go To The Location Of Their Choice, 05/27/2023 16:29:08 05/27/2005/27/2023 LIPID PANEL non HDL cholesterol (calc) 162 mg/dL (<160) high Not Available [facility] ([facility] Ordering - All Locations) Patient Can Go To The Location Of Their Choice, 05/27/2023 16:29:08 06/14/2006/14/2023 COLOG UARD cologuard result reportable NEGATI VE negati ve normal NEGAT MARCO ANTONIO TEST RESUL T. A negat marco antonio Colog uard resul t indic ates a low likel ihood that a color ectal cance r (CRC) or advan tahmina adeno ma (ruben omato us polyp s with more advan tahmnia pre-m align ant featu res) is prese nt. The chanc e that a perso n with a negat marco antonio Colog uard test has a color ectal cance r is less than 1 in 1500 (nega tive predi ctive value >99.9 %) or has an advan tahmina adeno ma is less than 5.3% (nega tive predi ctive value 94.7% ). These data are based on a prosp ectiv e cross -sect ional study of 0 indiv idual s at [place] ge risk for color ectal cance r who were scree sampson with both Colog uard and colon oscop y. (Beulah Stewart et al, N Engl J Med 2014; 370(1 4):12 86-12 97) The gucci l value (refe rence range ) for this assay is negat marco antonio. COLOG UARD RE-SC REENI NG RECOM MENDA TION: Perio dic color ectal cance r scree papi is an impor tant part of preve ntive healt hcare for asymp tomat ic indiv idual s at [place] ge risk for color ectal cance r. Follo wing a negat marco antonio Colog uard resul t, the Ameri can Cance r Socie ty and U.S. Multi -Soci ety Task Force scree papi guide lines recom mend a Colog uard re-sc reeni ng inter riley of 3 years . Refer ences : Ameri can Cance r Socie ty Guide line for Color ectal Cance r Scree papi: https ://alessandra w.can cer.o rg/ca ncer/ colon -rect al-ca ncer/ detec tion- diagn osis- stagi ng/ac s-rec ommen datio ns.ht ml.; Efrem PITT, Goree d CR, Domin teressa JK, Color ectal Cance r Scree papi: Recom menda tions for Physi cians and Patie nts from the U.S. Multi -Soci ety Task Force on Color ectal Cance r Scree papiMary Beth greco y 2017; 112:1 016-1 030. TEST DESCR IPTIO N: [facility] site algor ithmi c janelle sis of stool DNA-b iomar kers with hemog lobin immun oassa y. Quant itati ve value s of indiv idual bioma rkers are not repor table and are not assoc iated with indiv idual bioma rker resul t refer ence range s. Colog uard is inten ded for color ectal cance r scree papi of adult s of eithe r sex, 45 years or older , who are at [facility] for color ectal cance r (CRC) . Colog uard has been appro ann for use by the U.[place]. FDA. The perfo rmanc e of Colog uard was estab lishe d in a cross secti onal study of [facility] adult s aged 50-84 . Colog uard perfo rmanc e in patie nts ages 45 to 49 years was estim ated by reynaldo-g narcisap janelle sis of near- age group s. Colon oscop ies perfo rmed for a posit marco antonio resul t may find as the most clini mis signi fican t lesio n: color ectal cance r [4.0% ], advan tahmina adeno ma (incl uding sessi le swathi jaylen polyp s great er than or equal to 1cm diame ter) [20%] or non- advan tahmina adeno ma [31%] ; or no color ectal neopl shadia [45%] . These estim ates are deriv ed from a prosp ectiv e cross -sect ional scree papi study of 10,00 0 indiv idual s at [facility] risk for color ectal cance r who were scree sampson with both Colog uard and colon oscop y. (Beulah Stewart et al, N Engl J Med 2014; 370(1 4):12 86-12 97.) Colog uard may produ ce a false negat marco antonio or false posit marco antonio resul t (no color ectal cance r or preca ncero us polyp prese nt at colon oscop y follo w up). A negat marco antonio Colog uard test resul t does not guara ntee the absen ce of CRC or advan tahmina adeno ma (pre- cance r). The curre nt Colog uard scree papi inter riley is every 3 years . (Amer ican Cance r Socie ty and U.S. Multi -Soci ety Task Force ). Colog uard perfo rmanc e data in a 10,00 0 patie nt pivot al study using colon oscop y as the refer ence metho d can be acces sed at the follo wing locat ion: www.e xactl abs.c om/re sullyric . Addit ional descr iptio n of the Colog uard test proce ss, warni ngs and preca ution s can be found at www.c ologu sebas.c om. Not Available [facility] (Cologuard Orders Only) [address], [place], [address], 06/22/2023 14:54:55 10/03/19 25 10/04/2024 COMP. METAB OLIC PANEL (14) glucose 85 mg/dL 70-99 normal Not Available [facility] ([facility]) [address] [place], [address], 10/04/2024 08:08:25 10/03/19 25 10/04/2024 COMP. METAB OLIC PANEL (14) BUN 10 mg/dL 6-24 normal Not Available [facility] ([facility]) [address] [place], [address], 10/04/2024 08:08:25 10/03/19 25 10/04/2024 COMP. METAB OLIC PANEL (14) creatinine 0.87 mg/dL 0.57-1 .00 normal Not Available [facility] ([facility]) [address] [place], [address], 10/04/2024 08:08:25 10/03/19 25 10/04/2024 COMP. METAB OLIC PANEL (14) eGFR 78 mL/mi n/1.7 3 >59 normal Not Available [facility] ([facility]) [address] [facility], [place], [address], 10/04/2024 08:08:25 10/03/19 25 10/04/2024 COMP. METAB OLIC PANEL (14) BUN/creatini ne ratio 11 9-23 normal Not Available [facility] ([facility]) [address] [facility], [place], [address], 10/04/2024 08:08:25 10/03/19 25 10/04/2024 COMP. METAB OLIC PANEL (14) sodium 142 mmol/ L 134-14 4 normal Not Available [facility] ([facility]) [address] [facility], [place], [address], 10/04/2024 08:08:25 10/03/19 25 10/04/2024 COMP. METAB OLIC PANEL (14) potassium 4.3 mmol/ L 3.5-5. 2 normal Not Available [facility] ([facility]) [address] [facility], [place], [address], 10/04/2024 08:08:25 10/03/19 25 10/04/2024 COMP. METAB OLIC PANEL (14) chloride 103 mmol/ L 96-106 normal Not Available [facility] ([facility]) [address] [facility], [place], [address], 10/04/2024 08:08:25 10/03/19 25 10/04/2024 COMP. METAB OLIC PANEL (14) carbon dioxide, total 19 mmol/ L 20-29 below low normal Not Available [facility] ([facility]) [address] [place], [address], 10/04/2024 08:08:25 10/03/19 25 10/04/2024 COMP. METAB OLIC PANEL (14) calcium 9.5 mg/dL 8.7-10 .2 normal Not Available [facility] ([facility]) [address] [place], [address], 10/04/2024 08:08:25 10/03/19 25 10/04/2024 COMP. METAB OLIC PANEL (14) protein, total 6.7 g/dL 6.0-8. 5 normal Not Available [facility] ([facility]) [address] [place], [address], 10/04/2024 08:08:25 10/03/19 25 10/04/2024 COMP. METAB OLIC PANEL (14) albumin 4.5 g/dL 3.8-4. 9 normal Not Available [facility] ([facility]) [address] [place], [address], 10/04/2024 08:08:25 10/03/19 25 10/04/2024 COMP. METAB OLIC PANEL (14) globulin, total 2.2 g/dL 1.5-4. 5 Not Available [facility] ([facility]) [address] [place], [address], 10/04/2024 08:08:25 10/03/19 25 10/04/2024 COMP. METAB OLIC PANEL (14) bilirubin, total 0.3 mg/dL 0.0-1. 2 normal Not Available [facility] ([facility]) [address] [place], [address], 10/04/2024 08:08:25 10/03/19 25 10/04/2024 COMP. METAB OLIC PANEL (14) alkaline phosphatase 89 IU/L 44-121 normal Not Available [facility] ([facility]) [address] [place], [address], 10/04/2024 08:08:25 10/03/19 25 10/04/2024 COMP. METAB OLIC PANEL (14) AST (SGOT) 19 IU/L 0-40 normal Not Available [facility] ([facility]) [address] [facility] [place], [address], 10/04/2024 08:08:25 10/03/1910/04/2024 COMP. METAB OLIC PANEL (14) ALT (SGPT) 13 IU/L 0-32 normal Not Available [facility] ([facility]) [address] [facility], [place], [address], 10/04/2024 08:08:25 10/03/1910/03/2024 CBC, PLATE LET, NO DIFFE RENTI AL WBC 6.3 x10e3 /uL 3.4-10 .8 normal Not Available [facility] ([facility]) [address] [place], [address], 10/04/2024 08:08:26 10/03/1910/03/2024 CBC, PLATE LET, NO DIFFE RENTI AL RBC 4.48 x10e6 /uL 3.77-5 .28 normal Not Available [facility] ([facility]) [address] [place], [address], 10/04/2024 08:08:26 10/03/1910/03/2024 CBC, PLATE LET, NO DIFFE RENTI AL hemoglobin 13.6 g/dL 11.1-1 5.9 normal Not Available [facility] ([facility]) [address] [place], [address], 10/04/2024 08:08:26 10/03/1910/03/2024 CBC, PLATE LET, NO DIFFE RENTI AL hematocrit 41.5 % 34.0-4 6.6 normal Not Available [facility] ([facility]) [address] [place], [address], 10/04/2024 08:08:26 10/03/1910/03/2024 CBC, PLATE LET, NO DIFFE RENTI AL MCV 93 fL 79-97 normal Not Available [facility] ([facility]) [address] [place], [address], 10/04/2024 08:08:26 10/03/19 25 10/03/2024 CBC, PLATE LET, NO DIFFE RENTI AL MCH 30.4 pg 26.6-3 3.0 normal Not Available [facility] ([facility]) [address] [place], [address], 10/04/2024 08:08:26 10/03/19 25 10/03/2024 CBC, PLATE LET, NO DIFFE RENTI AL MCHC 32.8 g/dL 31.5-3 5.7 normal Not Available [facility] ([facility]) [address] [place], [address], 10/04/2024 08:08:26 10/03/1910/03/2024 CBC, PLATE LET, NO DIFFE RENTI AL RDW 12.1 % 11.7-1 5.4 Not Available [facility] ([facility]) [address] [place], [address], 10/04/2024 08:08:26 10/03/19 25 10/03/2024 CBC, PLATE LET, NO DIFFE RENTI AL platelets 193 x10e3 /uL 150-45 0 normal Not Available [facility] ([facility]) [address] [place], [address], 10/04/2024 08:08:26 10/03/19 25 10/03/2024 CBC, PLATE LET, NO DIFFE RENTI AL NRBC DIRECTOR OF CARDIAC REHABILITATION Not Available [facility] ([facility]) [address] [place], [address], 10/04/2024 08:08:26 10/03/19 25 10/04/2024 LIPID PANEL cholesterol, total 270 mg/dL 100-19 9 above high normal Not Available [facility] ([facility]) [address] [place], [address], 10/04/2024 08:08:27 10/03/19 25 10/04/2024 LIPID PANEL triglyceride s 80 mg/dL 0-149 normal Not Available [facility] ([facility]) [address] [place], [address], 10/04/2024 08:08:27 10/03/19 25 10/04/2024 LIPID PANEL HDL cholesterol 80 mg/dL >39 normal Not Available [facility] ([facility]) [address] [place], [address], 10/04/2024 08:08:27 10/03/19 25 10/04/2024 LIPID PANEL VLDL cholesterol vielka 13 mg/dL 5-40 Not Available [facility] ([facility]) [address] [place], [address], 10/04/2024 08:08:27 10/03/19 25 10/04/2024 LIPID PANEL LDL chol calc ([facility]) 177 mg/dL 0-99 above high normal Not Available [facility] ([facility]) [address] [place], [address], 10/04/2024 08:08:27 10/03/19 25 10/04/2024 LIPID PANEL LDL calc comment: DIRECTOR OF CARDIAC REHABILITATION Not Available [facility] ([facility]) [address] [place], [address], 10/04/2024 08:08:27 10/03/19 25 10/04/2024 CINTHYA TIN ferritin 125 NG/mL 15-150 normal Not Available [facility] ([facility]) [address] [place], [address], 10/04/2024 08:08:27 02/25/20 22 02/23/2022 MAMMO , gerae papi, digit al, bilat eral No observ ation record ed. [email or web address] [facility] [address] [place], [address], 05/27/2023 10:34:45 05/27/20 23 05/27/2023 audio gram No observ ation record ed. corky In-Office Order Internal Use Only DO Not Attach Compendium DO Not Attach Compendium, Do Not Delete/merge, [id number] 05/28/2023 11:10:29 08/09/20 23 07/27/2023 sleep study , diagn ostic (PROC ) No observ ation record ed. [facility] [address] [place], [address], 08/09/2023 18:47:39 Result Notes None recorded. Problems Name Problem SNOMED Code Status Onset Date Resolution Date Notes Provider Name and Address Organization Details Recorded Time Abnormal weight loss 736603551 Active 2010 Lyla epps, [facility] 7 10:18:15 Screenin g for malignan t neoplasm of breast Completed 201202/25/2015 RECORDED 11/29/19 13 12:49PM BY LALO GUTIERREZ MA, PHONE ENCOUNTE eDbra james MD [address] [facility] [address], [place], [address], [facility] 5 10:42:01 Screenin g for malignan t neoplasm of cervix Completed 201202/25/2015 RECORDED 11/29/19 13 12:50PM BY LALO GUTIERREZ MA, PHONE ENCOUNTE Debra james MD [address] [facility] [address], [place], [address], [facility] 5 10:42:01 Depressi ve disorder 19658262 Active 2010 Lyla epps, [facility] 7 10:18:20 Well child 185597813 Completed 201002/25/2015 RECORDED 02/06/20 11 9:51AM BY PATSY GOLD I, OFFICE VISIT Angeline james MD [address] [facility] [address], [place], [address], [facility] 5 10:45:00 Persiste nt insomnia 574744145 Active 2010 Lyla epps, [facility] 7 10:18:13 Adult health examinat ion Completed 201002/25/2015 RECORDED 06/26/20 11 1:33PM BY YANE DAVISON MA, ANNOTATI ON/ADDEN DUM Angeline james MD [address] [facility] [address], [place], [address], [facility] 5 10:42:01 Vitamin D deficien cy 59002056 Active 2010 Lyla epps, [facility] 7 10:18:18 Herpes zoster ophthalm icus 17240880 Active Manuel Palafox MD [address] [facility] [address], [place], [address], [facility] 5 15:49:40 Lesion of skin of face 53439213252 6 Active Angeline james MD [address] [facility] [address], [place], [address], [facility] 5 12:26:06 Periodic leg movement s of sleep 069661930 Active 2022 Had a sleep study and followed by Sleep Medicine . Angeline james MD [address] [facility] [address], [place], [address], [facility] 3 18:47:23 Problem Notes None recorded. Procedures Surgical History Date Name Laterality Status Provider Name and Address Organization Details Recorded Time 2 Most Recent Mammogram completed Dea Potts [facility] 02/26/2022 10:35:08 0 Date of Last Pap Smear completed Katharina Omi [facility] 03/25/2021 13:35:23 8 FOBT completed Yane lara MA [facility] 08/31/2017 13:58:10 Imaging Results Imaging Date Name Status LastModified by Organiz ation Details LastModified Time 02/23/2022 MAMMO, screening, digital, bilateral completed [facility] [address], [place], [address], 05/27/2023 10:34:45 05/27/2023 audiogram completed [facility] In-Office Ord er Internal Use Only DO Not Attach Compendium DO Not Attach Compendium, Do Not Delete/merge, [id number] 05/28/2023 11:10:29 07/27/2023 sleep study, diagnostic (PROC) completed [facility] [address] [place], [address], 08/09/2023 18:47:39 Procedure Notes None recorded. Medical Equipment None Reported. Allergies No known drug allergies Medications Name Sig Start Date Stop Date Status Note LastModified by Organization Details LastModified Time bupropion HCl SR 150 mg tablet,12 hr sustained -release QD 02/06 completed Not Available Not Available Not Available trazodone 50 mg tablet TAKE 1 TABLET BY MOUTH EVERYDAY AT BEDTIME active Not Available Not Available No t Available cetirizin e 10 mg tablet Take 1 tablet every day by oral route for 30 days. 08/09 completed Not Available Not Available Not Available valacyclo vir 1 gram tablet Take 1 tablet 3 times a day by oral route for 7 days. active Not Available Not Available No t Available ergocalci ferol (vitamin D2) 1,250 mcg (50,000 unit) capsule ONCE A WEEK 2007 active RECORDED 02/06/20 11 9:51AM BY PATSY GOLD I, OFFICE VISIT; Not Available Not Available Not Available Prozac 10 mg tablet QD active RECORDED 12/23/19 08 10:02AM BY HIRAL MCCOY, OFFICE VISIT; Not Available Not Available Not Available fluoxetin e 20 mg capsule TAKE 1 CAPSULE BY MOUTH DAILY IN THE MORNING 10/03 completed Not Available Not Available Not Available bupropion HCl XL 150 mg 24 hr tablet, extended release TAKE 1 TABLET BY MOUTH DAILY active Not Available Not Available No t Available Afluria Qd 2018- (36 mos up)(PF)60 mcg (15 mcg x4)/0.5 mL IM syringe 09/28 completed Not Available Not Available Not Available Vitals Date Recorded Body height Body mass index (BMI) Body weight Heart rate Oxygen saturation Oxygen saturation in Arterial blood by Pulse oximetry Body temperature Systolic blood pressure Diastolic blood pressure Provider Name and Address Organization Details Last Updated DateTime 0 159.39 cm 21.1 kg/m2 58681.9 g 60 /min 97 % 97 % 97.6 [degF] 110 mm[Hg] 62 mm[Hg] Patsy Valdivia [facility] 0 14:02:45 Date Recorded Body height Body mass index (BMI) Body weight Body temperature Heart rate Oxygen saturation Oxygen saturation in Arterial blood by Pulse oximetry Systolic blood pressure Diastolic blood pressure Provider Name and Address Organization Details Last Updated DateTime 1 159.39 cm 20.5 kg/m2 12875.1 2 g 98.24 [degF] 70 /min 98 % 98 % 97 mm[Hg] 64 mm[Hg] Melvina Kendall MA [facility] 1 10:04:00 Date Recorded Body height Body mass index (BMI) Body weight Heart rate Oxygen saturation Oxygen saturation in Arterial blood by Pulse oximetry Body temperature Systolic blood pressure Diastolic blood pressure Provider Name and Address Organization Details Last Updated DateTime 2 159.39 cm 20.4 kg/m2 77294.5 3 g 74 /min 99 % 99 % 98.42 [degF] 94 mm[Hg] 60 mm[Hg] Sharon Turcios MA [facility] 2 10:09:13 Date Recorded Body height Body mass index (BMI) Body weight Heart rate Oxygen saturation Oxygen saturation in Arterial blood by Pulse oximetry Body temperature Systolic blood pressure Diastolic blood pressure Provider Name and Address Organization Details Last Updated DateTime 3 159.39 cm 20.3 kg/m2 96580.0 9 g 61 /min 98 % 98 % 98.4 [degF] 110 mm[Hg] 60 mm[Hg] Renetta Ortega MA [facility] 3 10:01:53 Date Recorded Body height Body mass index (BMI) Body weight Heart rate Oxygen saturation Oxygen saturation in Arterial blood by Pulse oximetry Body temperature Systolic blood pressure Diastolic blood pressure Provider Name and Address Organization Details Last Updated DateTime 5 157.48 cm 20.3 kg/m2 99083.4 5 g 60 /min 99 % 99 % 97.7 [degF] 92 mm[Hg] 57 mm[Hg] Kendra Ortiz LPN [facility] 5 09:05:36 Social History Question Answer Notes LastModified by Organizat ion Details LastModified Time Tobacco Smoking Status Never Smoker Not Available [facility] 07/02/2020 03:36:34 Do You Have An Advance Directive? No [id number] Information not available 07/02/2020 What Is Your Level Of Alcohol Consumption? None [id number] Information not available 07/02/2020 Is Blood Transfusion Acceptable In An Emergency? Yes [id number] Information not available 07/02/2020 What Is Your Level Of Caffeine Consumption? Moderate Coffee, Caffinated Durant Information not available 02/11/2022 How Much Tobacco Do You Chew? None [email or web address] Information not available 01/09/2021 Are You Currently Employed? No Left [employer] Recently After 9 Years. Took Some Time Off And Now Looking For Another Job. [email or web address] Information not available 10/03/2024 What Type Of Diet Are You Following? GLUTENFREE [id number] Information not available 07/02/2020 Which Illicit Or Recreational Drugs Have You Used? None [id number] Information not available 07/02/2020 Do You Or Have You Ever Used E-cigarettes Or Vape? Never Used Electronic Cigarettes [id number] Information not available 07/02/2020 What Is Your Occupation? [employer] [id number] Information not available 07/02/2020 Live Alone Or With Others? Alone juan Information not available 02/25/2015 Do You Take Precautions To Prevent Distracted Driving? No Information not available 08/09/2017 How Often Do You Need To Have Someone Help You When You Read Instructions, Pamphlets, Or Other Written Material From Your Doctor Or Pharmacy? Never Information not available 08/09/2017 Have You Served In The ? Yes Information not available 08/09/2017 Have You Or Anyone In Your Household Had Any Of The Following Symptoms In The Last 14 Days: Sore Throat, Cough, Chills, Body Aches For Unknown Reasons, Shortness Of Breath For Unknown Reasons, Loss Of Smell, Loss Of Taste, Fever At Or Greater Than 100 Degrees Fahrenheit? No [email or web address] Information not available 01/09/2021 Are You Or Anyone In Your Household A Health Care Provider Or Emergency Responder? No [email or web address] Information not available 01/09/2021 To The Best Of Your Knowledge Have You Been In Close Proximity To Any Individual Who Tested Positive For COVID-19? No [email or web address] Information not available 01/09/2021 Have You Recently Traveled To A COVID-19 High Risk Area Or Gathering In The Last 10 Days? No Information not available 01/09/2021 What Was The Date Of Your Most Recent Tobacco Screening? 10/03/2024 [email or web address] Information not available 10/03/2024 How Many Children Do You Have? 0 [id number] Information not available 07/02/2020 Seat Belts Used Routinely Yes Information not available 08/09/2017 Are You Sexually Active? No [id number] Information not available 07/02/2020 Smoke Alarm In Home Yes Information not available 08/09/2017 Are You Passively Exposed To Smoke? No Information not available 08/09/2017 Do You Or Have You Ever Used Smokeless Tobacco? Never Used Smokeless Tobacco [id number] Information not available 07/02/2020 How Much Tobacco Do You Smoke? No Information not available 01/09/2021 Do You Use Any Illicit Or Recreational Drugs? No Information not available 02/11/2022 Do You Use Sunscreen Routinely? Yes [id number] Information not available 07/02/2020 Do You Or Have You Ever Used Any Other Forms Of Tobacco Or Nicotine? No Information not available 02/11/2022 Sex: Unknown Functional Status Question Answer Note LastModified by Organization D etails LastModified Time Are you able to walk? [email or web address] Information not available 02/11/2022 Are you able to care for yourself? Yes [id number] Information not available 07/02/2020 What is your exercise level? Moderate [id number] Information not available 07/02/2020 Mental Status None recorded. Family History Relationship Description Onset Age of this Age Resolved Age Notes LastModified by Organization Details LastModified Time Mother Malignant tumor of breast 79 [email or web address] Not available 10/03 09:06:59 Mother Retinal detachment 79 [email or web address] Not available 11/2024 09:07:08 Mother Alcohol abuse 79 [email or web address] Not available 10/03 09:06:54 Mother Cerebrovascu lar accident 79 [email or web address] Not available 0 05/27/2023 10:32:15 Father Stented artery [email or web address] Not available 08/09 09:30:15 Father Bypass graft [email or web address] Not sara ilable 08/09/2017 09:30:15 Notes:Has 3 younger brothers Medical History Condition Response Gout N Other N Kidney Stones N Blood Diseases N Hyperthyroidism N Breast Cancer N Hypothyroidism N Lung Disease N Depression N COPD N Defects or Inherited Disease N Anesthesia Complications N Headaches/Migraines N Anxiety Disorder N Varicose Veins N Obesity N Vision or Eye Problems N Arthritis N Head Injury/Concussion N Infertility N Polyps N Congenital Anomalies N Acid Reflux (GERD) N Cancer N Stroke N ADHD N Endometriosis N High Cholesterol N Liver Disease N Fibromyalgia N Kidney Disease N Heart Problems N Ear or Hearing Problems N Hospitalizations N Thyroid Problems N GI Problems N Acne N Eating Disorder N Skin Problems N Anemia N Constipation N Bladder Problems N Mental Illness N Diabetes N Ovarian Cancer N Blood Transfusions N Seizures/Epilepsy N Tuberculosis N AIDS/HIV N Congestive Heart Failure (CHF) N Eczema N Abuse/Domestic Violence N Diverticulitis N Asthma N Allergies N Reflux/GERD N Hepatitis N Pulmonary Embolism N Hypertension N Chicken Pox N Autism Spectrum Disorder (ASD) N Osteoporosis N Gynecological History Statement/Question Response Date of Last Pap Smear 01/09/2020 Most Recent Mammogram 02/23/2022 Obstetrics History GPAL:G 0 P 0 0 0 0 Immunizations Vaccine Type Date Status Note Provider Nam e and Address Organization Details Recorded Time Tdap 5 completed Not Available [facility] 09/16/2019 02:21:44 Influenza, split virus, quadrivalent, preservative 9 completed Not Available [facility] 09/30/2019 02:14:00 COVID-19, mRNA, LNP-S, PF, 100 mcg/0.5mL dose or 50 mcg/0.25mL dose 1 completed HIRAL Luu [facility] 07/29/2022 09:33:03 COVID-19, mRNA, LNP-S, PF, 100 mcg/0.5mL dose or 50 mcg/0.25mL dose 1 completed HIRAL Luu [facility] 07/29/2022 09:33:03 Influenza, MDCK, quadrivalent, PF 1 completed HIRAL Luu [facility] 07/29/2022 09:33:03 COVID-19, mRNA, LNP-S, PF, 100 mcg/0.5mL dose or 50 mcg/0.25mL dose 1 completed HIRAL Luu [facility] 07/29/2022 09:33:03 COVID-19, mRNA, LNP-S, PF, 100 mcg/0.5mL dose or 50 mcg/0.25mL dose 2 completed Kendra Ortiz [employer] supriya [facility] 10/03/2024 09:05:52 Influenza, split virus, trivalent, PF 4 completed Kendra Caporale [employer]PER[employer] supriya [facility] 10/03/2024 09:05:52 Influenza, split virus, quadrivalent, PF 2 completed Kendra Caporale [employer] SUPERVISOR supriya, [facility] 10/03/2024 09:05:52 Influenza, split virus, quadrivalent, PF 3 completed Angeline Cueto MD [address], [address], [facility] 05/27/2023 17:41:16 Past Encounters Encounter ID Performer Location Encounter Start Date Encounter Closed Date Diagnosis/Indication Diagnosis SNOMED-CT Code Diagnosis ICD10 Code Diagnosis Note autoEComm erce [id number] [facility] [facility] [place] [address] 12/23/2007 00:00:00 autoEComm erce [address] [facility] [address] [place] [address] 02/24/2008 00:00:00 [id number] autoEComm erce [address] [facility] [place] [address] 02/05/2011 00:00:00 [id number] Patsy Valdivia Main Office [address] [place] [address] 02/08/2015 14:53:00 02/08/2015 16:15:33 Herpes zoster ophthalmicus 56709059 urgent eye appt today [id number] Main Office [address] [place] [address] 02/25/2015 09:54:17 02/25/2015 11:08:14 Adult health examination 471150943 Screening for malignant neoplasm of cervix 140901859 Screening for malignant neoplasm of breast 133765162 Administra tion of diphtheria, pertussis, and tetanus vaccine 535748887 Lesion of skin of face 5840853108 06 [id number] Edgar stallworth Main Office [address] [address] [place] [address] 02/06/2017 10:11:45 02/06/2017 10:55:57 Urticaria 061624795 L50.9 [id number] Angeline Cueto MD Main Office [address] [place] [address] [place] [address] 08/09/2017 09:26:04 08/09/2017 10:15:54 Adult health examination 777880737 Z00.00 Screening for malignant neoplasm of cervix 787041499 Z12.4 Screening for malignant neoplasm of breast 896165335 Z12.39 Screening for malignant neoplasm of colon 588467661 Z12.11 [id number] Angeline Cueto MD Main Office [address] [address] 08/31/2017 13:57:14 08/31/2017 14:27:01 Screening for malignant neoplasm of colon 345071240 Z12.11 [id number] Angeline Cueto MD Main Office [address] [address] 08/15/2018 09:23:49 08/15/2018 10:32:58 Adult health examination 761645135 Z00.00 Will do FOB cards. UTD w/immuniza tions. Screening for malignant neoplasm of breast 023269899 Z12.39 Screening for malignant neoplasm of cervix 079487590 Z12.4 Last done in 2014 Depressive disorder 3548 9007 F32.0 Followed by psychiatry and under control with meds. [id number] Nery Mobley MA Main Office [address] [address] 10/10/2018 13:13:06 10/10/2018 13:14:06 Screening for malignant neoplasm of colon 755571373 Z12.11 [id number] Angeline Cueto MD Main Office [address] [address] 09/28/2019 13:33:43 09/28/2019 14:40:03 Adult health examination 462228787 Z00.00 UTD w/immuniza tions. Screening for malignant neoplasm of breast 006948986 Z12.39 Screening for malignant neoplasm of colon 619426473 Z12.11 Gynecologi c examination 77715159 Z01.419 [id number] Angeline Cueto MD Main Office [address] [address] 01/09/2021 09:49:53 01/09/2021 11:05:17 Adult health examination 171590087 Z00.00 UTD with COVID and tetanus. Due for a shingles and advised to get one at her pharmacy. Screening for malignant neoplasm of breast 989550229 Z12.39 Screening for malignant neoplasm of colon 723528754 Z12.11 Will look into cologuard after April. [id number] Angeline Cueto MD Main Office [address] [facility] [address] [facility] [place] [address] 02/11/2022 09:58:36 02/11/2022 10:44:17 Adult health examination 072638826 Z00.00 UTD with COVID vaccine and booster x1 and tetanus. Due for a shingles and advised to get one at her pharmacy. She is scheduled for her first mammogram next week. Hepatitis C screening 41 6550600 Z11.59 Family his tory of Cardiovascular disease 952844812 Z82.49 Dad had stents placed. Screening for malignant neoplasm of colon 256828827 Z12.11 Z12.12 Will look into cologuard again. Depressive disorder 35477 F32.0 Followed by psychiatry and under control with meds. Persistent insomnia 1918 24715 G47.09 Stable on trazadone. [id number] Angeline Cueto MD Main Office [address] [place] [address] 05/27/2023 09:35:27 05/27/2023 10:39:13 Adult health examination 441249048 Z00.00 UTD with COVID vaccine and booster x1 and tetanus. Due for a shingles and advised to get one at her pharmacy. She had her first mammogram done last year. She received cologuard last year but didn't complete it. Needs infl uenza immunization 471088352 Z23 Persistent insomnia 1918 67265 G47.09 Gets some help from trazadone but doesn't sleep long and feels unrefreshe d the following day. Decreased hearing 966268 001 H91.90 Family his tory of Cardiovascular disease 408025499 Z82.49 Dad had stents placed. Depressive disorder 35477 F32.0 Followed by psychiatry and under control with meds. Screening for malignant neoplasm of colon 514126415 Z12.11 Z12.12 Will look into cologuard again. [id number] Angeline Cueto MD Main Office [address] [facility] [address] [place] [address] 10/03/2024 08:59:16 10/03/2024 10:01:04 Adult health examination 457307433 Z00.00 UTD with COVID vaccine and booster x1. Had a flu vaccine June 2024 Due for a shingles and advised to get one at her pharmacy. She had her first mammogram done last year. She completed a cologuard 2022 and is due again in 2025.She was advised to get a tetanus update at her pharmacy. Administra tion of diphtheria, pertussis, and tetanus vaccine 626715445 Z23 She will get this at her phamacy Persistent insomnia 1919 71202 G47.09 Gets some help from trazadone. Depressive disorder 3548 9007 F32.0 Followed by psychiatry and under control with meds. Hyperlipidemia 51989307 E78.5 Decreased hearing 409423 001 H91.90 Health Concerns Section Related Observation LastModified by Organization Detai ls LastModified Time None Recorded Concern Status LastModified by Organization Details LastModified Time None Recorded Advance Directives Directive N: Payers Encounter Date Sequence Insurance Name Policy Number Policy Benítez Covered Member ID Benítez Member ID Guarantor Name 09/28/2019 1 [facility] ([facility]) [id number] Tamai M M Mixter [id number] Tamia M Mixter 01/09/2021 1 [facility] (O) [id number] Tamia M M Mixter [id number] Tamia M Mixter 02/11/2022 1 [facility] (O) [id number] Tamia M M Mixter [id number] Tamia M Mixter 05/27/2023 1 [employer] [id number] Tamia M Mixter [id number] Tamia M Mixter 10/03/2024 1 [facility] PUBLIC PLANS [facility] TYPE I (HMO) [id number] Tamia M Mixter [id number] Tamia M Mixter Notes Date Note Type Note Provider Name and Address Organization Details Recorded Time 09/28/2019 text/html Generic HPI TemplateReported bypatient.Notes:She has been delinquent in her screening but will make an effort to try to get things down. Angeline Cueto MD [address] [address], [place], [address], [facility] 09/28/2019 19:46:03 01/09/2021 text/html Generic HPI TemplateReported bypatient.Notes:She has been working remotely while staying at her brother's place in [place]. She has been healthy. Did not contract COVID and has been vaccinated. Angeline Cueto MD [address] [address], [place], [id number], [facility] 01/09/2021 10:57:57 02/11/2022 text/html Generic HPI TemplateReported bypatient.Notes:Se has been safe during the pandemic, is fully vaccinated and has never had COVID. 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 Says that she will try again.Having difficult time getting good sleep despite the trazadone.Depression is under good control with meds and is followed by psychiatry.Had an episode of shingles last year on her face. Has not had the shingles vaccine. Angeline Cueto MD [address] [address], [place], [id number], [facility] 05/27/2023 17:55:59 10/03/2024 text/html Generic HPI TemplateReported bypatient.Notes:She has been doing well since her last appointment. 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 Angeline Cueto MD [address], [id number], [facility] 10/03/2024 12:49:49 OBGyn Episode No OBEpisode recorded.
== END 2024-12-21 08:23 | disposition home or self-care (01) ==
LOC: HO.SH 08:22
PROVIDERS: PCP Internal Medicine; Visit Provider Internal Medicine
DX: Z01.118 Encounter for examination of ears and hearing with other abnormal findings (principal); H90.3 Sensorineural hearing loss, bilateral
CPT/HCPCS: 92557